=== PATIENT | female | born 1965 | race Caucasian/White ===

== ENCOUNTER 2019-01-23 13:49 | Emergency (ER) | payer OTHER ==
[2019-01-23 14:29] VITALS: RESP 18
[2019-01-23] MEDS ORDERED: SODIUM CHLORIDE 0.9% 500 ML 500 ML IV STA (15:04)
[2019-01-23 15:27] LABS: Basophils # (A) 0.1 k/uL (0-0.2); Basophils % (A) 1 %; Eosinophils # (A) 0.2 k/uL (0-0.7); Eosinophils % (A) 4 %; HCT 42.3 % (34.0-46.0); Lymphocytes # (A) 1.6 k/uL (1.0-4.8); Lymphocytes % (A) 26 %; MCH 30.2 pg (25.0-35.0); MCHC 35.4 g/dL (31.0-37.0); MCV 85.3 fL (80.0-100.0); Mean Platelet Volume 6.2; Monocytes # (A) 0.3 k/uL (0-1.0); Monocytes % (A) 5 %; Neutrophils # (A) 3.9 k/uL (1.3-7.7); Neutrophils % (A) 63 %; Platelet Count 255 k/uL (150-450); RBC 4.96 m/uL (3.80-5.40); RDW 12.7 % (11.5-15.5); WBC 6.2 k/uL (3.8-10.6)
[2019-01-23 15:56] LABS: ALT 40 U/L (9-52); AST 27 U/L (14-36); African American GFR (CKD) >90 (>60 ml/min/1.73 sqM); Albumin 4.5 g/dL (3.5-5.0); Alkaline Phosphatase 58 U/L (38-126); Anion Gap 8 mmol/L; Blood Urea Nitrogen 11 mg/dL (7-17); Calcium 9.6 mg/dL (8.4-10.2); Carbon Dioxide 26 mmol/L (22-30); Chloride 108 mmol/L (98-107); Glucose 92 mg/dL (74-99); Potassium 4.2 mmol/L (3.5-5.1); Sodium 142 mmol/L (137-145); Total Bilirubin 0.4 mg/dL (0.2-1.3); Total Protein 7.5 g/dL (6.3-8.2)
--- NOTE | 2019-01-23 16:35 | ED ---
General Adult HPI - General Chief complaint: Neck Pain/Injury Stated complaint: Swelling in neck area Time Seen by Provider: 01/23/19 14:43 Source: patient, RN notes reviewed Mode of arrival: ambulatory Limitations: no limitations - History of Present Illness Initial comments: 53-year-old female with a past medical history of GERD, hiatal hernia, IBS pr esents to the emergency department for a chief complaint of right-sided facial swelling. States this started just prior to arrival and has lasted about one hour. Patient states on Friday she had dental work done on her gums. States that she had some pain in in the maxillary area at that time but it resolved. States now she has swelling to the right lateral side of the face. Denies any neck pain or stiffness. Denies any pain under the tongue. Denies any difficulty opening the mouth. Denies eating worsening this.Patient has no other complaints at this time including shortness of breath, chest pain, abdominal pain, nausea or vomiting, headache, or visual changes. - Related Data Home Medications Medication Instructions Recorded Confirmed ALPRAZolam [Xanax] 0.5 mg PO DAILY 12/21/15 12/21/15 FLUoxetine HCL [PROzac] 20 mg PO DAILY 12/21/15 12/21/15 Fluticasone Nasal [place] [Flonase 1 spray INHALATION DAILY 12/21/15 12/21/15 Nasal [place]] Phenobarb/Hyoscy/Atropine/Scop 16.2 mg PO TID 12/21/15 12/21/15 [] metFORMIN HCL [Metformin HCl ER] 1,000 mg PO DAILY 12/21/15 12/21/15 Previous Rx's Medication Instructions Recorded Clindamycin [Cleocin] 450 mg PO Q8H 10 Days #90 capsule 01/23/19 Allergies Allergy/AdvReac Type Severity Reaction Status Date / Time No Known Allergies Allergy Verified 01/23/19 14:29 Review of Systems ROS Statement: Those systems with pertinent positive or pertinent negative responses have been documented in the HPI. ROS Other: All systems not noted in ROS Statement are negative. Past Medical History Past Medical History: GERD/Reflux Additional Past Medical History / Comment(s): hiatal hernia, IBS History of Any Multi-Drug Resistant Organisms: None Reported Past Surgical History: Cholecystectomy Past Anesthesia/Blood Transfusion Reactions: No Reported Reaction Past Psychological History: Anxiety, Depression Smoking Status: Former smoker Past Alcohol Use History: Occasional Past Drug Use History: None Reported General Exam Limitations: no limitations General appearance: alert, in no apparent distress Head exam: Present: atraumatic, normocephalic, normal inspection Eye exam: Present: normal appearance, PERRL, EOMI. Absent: scleral icterus, conjunctival injection, periorbital swelling ENT exam: Present: normal exam, normal oropharynx (No sublingual edema or tender ness. No lesions within the mouth.), mucous membranes moist, TM's normal bilaterally, normal external ear exam, other (Mild swelling noted to the lateral side of the right face with induration and minimal tenderness.) Neck exam: Present: normal inspection, full ROM. Absent: tenderness, meningismus, lymphadenopathy Respiratory exam: Present: normal lung sounds bilaterally. Absent: respiratory distress, wheezes, rales, rhonchi, stridor Cardiovascular Exam: Present: regular rate, normal rhythm, normal heart sounds. Absent: systolic murmur, diastolic murmur, rubs, gallop, clicks GI/Abdominal exam: Present: soft, normal bowel sounds. Absent: distended, tenderness, guarding, rebound, rigid Neurological exam: Present: alert, oriented X3, CN II-XII intact Course Vital Signs 01/23/19 14:26 Temperature 97.9 F Pulse Rate 75 Respiratory 18 Rate Blood Pressure 154/93 O2 Sat by Pulse 97 Oximetry Medical Decision Making - Medical Decision Making 53-year-old female with a past medical history of GERD, hiatal hernia, IBS presents for right-sided facial swelling. History was obtained from patient and is as documented. Vitals are stable, patient is afebrile. Exam is pertinent for swelling to the right side of the face with induration and minimal edema, no erythema or increased warmth. Parotid gland is involved with this. No sublingual edema or edema in the mouth. CBC CMP are unremarkable. Soft tissue neck CT with contrast shows right parotiditis which is clinically correlated. There is no underlying abscess or mass. Discussed this case with Dr Kaiser. At this time patient will be treated with sour candies and clindamycin. Recomm end she follow up with primary care in one to 2 days. Recommend she return if she has any worsening symptoms. She'll be also given ENT referral. - Lab Data Result diagrams: 01/23/19 15:16 01/23/19 15:16 Lab Results 01/23/19 01/23/19 Range/Units 15:16 15:16 WBC 6.2 (3.8-10.6) k/uL RBC 4.96 (3.80-5.40) m/uL Hgb 15.0 (11.4-16.0) gm/dL Hct 42.3 (34.0-46.0) % MCV 85.3 (80.0-100.0) fL MCH 30.2 (25.0-35.0) pg MCHC 35.4 (31.0-37.0) g/dL RDW 12.7 (11.5-15.5) % Plt Count 255 (150-450) k/uL Neutrophils % 63 % Lymphocytes % 26 % Monocytes % 5 % Eosinophils % 4 % Basophils % 1 % Neutrophils # 3.9 (1.3-7.7) k/uL Lymphocytes # 1.6 (1.0-4.8) k/uL Monocytes # 0.3 (0-1.0) k/uL Eosinophils # 0.2 (0-0.7) k/uL Basophils # 0.1 (0-0.2) k/uL Sodium 142 (137-145) mmol/L Potassium 4.2 (3.5-5.1) mmol/L Chloride 108 H (98-107) mmol/L Carbon Dioxide 26 (22-30) mmol/L Anion Gap 8 mmol/L BUN 11 (7-17) mg/dL Creatinine 0.79 (0.52-1.04) mg/dL Est GFR (CKD-EPI)AfAm >90 (>60 ml/min/1.73 sqM) Est GFR (CKD-EPI)NonAf 86 (>60 ml/min/1.73 sqM) Glucose 92 (74-99) mg/dL Calcium 9.6 (8.4-10.2) mg/dL Total Bilirubin 0.4 (0.2-1.3) mg/dL AST 27 (14-36) U/L ALT 40 (9-52) U/L Alkaline Phosphatase 58 (38-126) U/L Total Protein 7.5 (6.3-8.2) g/dL Albumin 4.5 (3.5-5.0) g/dL Disposition Clinical Impression: Parotiditis Disposition: HOME SELF-CARE Condition: Good Instructions (If sedation given, give patient instructions): Sialoadenitis (ED), Parotid Duct Obstruction (ED) Additional Instructions: Please use sour candies often. Please take the medicine as directed. Follow-up with primary care in 1-2 days. Return to the emergency department if you have any worsening symptoms. Prescriptions: Clindamycin [Cleocin] 450 mg PO Q8H 10 Days #90 capsule Is patient prescribed a controlled substance at d/c from ED?: No Referrals: Aye Santacruz MD [STAFF PHYSICIAN] - 1-2 days Feliberto Hurd MD [STAFF PHYSICIAN] - 1-2 days Time of Disposition: 18:00
--- NOTE | 2019-01-23 17:13 | CT ---
EXAMINATION TYPE: CT soft tissue neck w con DATE OF EXAM: 01/23/2019 COMPARISON: None HISTORY: Right sided neck and facial swelling. CT DLP: 452.6 mGycm CONTRAST: Patient injected with 100ml mL of Isovue 300. TECHNIQUE: Axial images at 3 mm thick sections. Reconstructed images in the coronal plane and sagitt al plane are reviewed. FINDINGS: Limited CT sections are obtained the lung apices. The lung apices appear clear. There is a three-vessel arch CT neck: The torus tubarius and fossa of Rosenmuller are normal. [employer] Outside spaces are normal. Para nasal sinuses and mastoid air cells are clear. Right parotid gland borders are somewhat indistinct. Inflammatory changes inferior to the right parot id gland. Underlying mass is not identified. The inflammatory changes extend into the deep soft tissu es deep to the platysmas muscle. Superficial soft tissues appear normal. The left side appears unrema rkable without inflammatory change. Correlate for right parotiditis. Submandibular glands, are normal. Parapharyngeal spaces are normal. No suspicious adenopathy is jen dent. The hypopharynx appears within normal limits. Vocal cord level appear symmetrical. Thyroid as visualized is normal. Osseous structures are normal. IMPRESSIONS: 1. Clinical correlation recommended for right parotiditis. No underlying abscess or mass is identifie d.
[2019-01-23 18:47] VITALS: BP 136/82; PULSE 64; TEMP 98.4
== END 2019-01-23 18:47 | disposition home or self-care (01) ==
LOC: EC 13:49
DX: K11.20 Sialoadenitis, unspecified (principal); F41.9 Anxiety disorder, unspecified; F32.9 Major depressive disorder, single episode, unspecified; Z87.891 Personal history of nicotine dependence; Z79.51 Long term (current) use of inhaled steroids; Z79.84 Long term (current) use of oral hypoglycemic drugs; Z79.899 Other long term (current) drug therapy
CPT/HCPCS: 36415; 80053; 85025; 70491; 99284; 96360; 96361; Q9967